=== PATIENT | male | born 1970 | race African-American/Black ===

== ENCOUNTER 2022-01-03 21:51 | Inpatient (IN) | payer MEDICAID ==
[~2022-01-03] VITALS: Ht 175.3 cm; Wt 116.5 kg
[2022-01-03] MEDS ORDERED: MORPHINE SULFATE 4 MG/ML CPJ (NOT FOR IM USE) IV STA (22:47)
[2022-01-03] MEDS ORDERED: ONDANSETRON HCL 4MG/2ML INJ IV STA (22:47)
[2022-01-03 23:20] LABS: BASOPHILS % 0.7 % (0.0-2.0); EOSINOPHILS % 0.7 % (0.0-5.0); HEMATOCRIT. 44.7 % (42.0-52.0); HEMOGLOBIN. 14.8 g/dL (14.0-18.0); LYMPHOCYTES % 22.3 % (20.0-50.0); MEAN CORPUSCULAR HEMOGLOBIN 29.9 pg (28.0-32.0); MEAN CORPUSCULAR VOLUME 90.3 fL (80.0-94.0); MEAN PLATELET VOLUME 8.7 fl (7.4-10.4); MONOCYTES % 10.4 % (2.0-8.0); NEUTROPHILS % 65.9 % (40.0-76.0); PLATELET 276 x1000/uL (130-400); RED BLOOD CELL COUNT 4.95 mill/uL (4.7-6.1); RED CELL DISTRIBUTION WIDTH 14.3 % (11.6-14.6)
[2022-01-03 23:21] LABS: INR 1.1; PROTHROMBIN TIME 12.1 sec (9.6-11.0)
[2022-01-03 23:22] LABS: CHLORIDE 101 mEq/L (98-107)
[2022-01-04] MEDS ORDERED: ONDANSETRON HCL 4MG/2ML INJ IV ONE (01:15)
[2022-01-04] MEDS ORDERED: MORPHINE SULFATE 4 MG/ML CPJ (NOT FOR IM USE) IV ONE (01:15)
[2022-01-04] MEDS ORDERED: MORPHINE SULFATE 2 MG/ML CPJ (NOT FOR IM USE) IV NR (10:00)
[2022-01-04] MEDS ORDERED: NALOXONE HCL 0.4MG/ML VIAL IV PRN (10:00)
[2022-01-04 10:50] VITALS: BP 173/95
[2022-01-04] MEDS ORDERED: ONDANSETRON HCL 4MG/2ML INJ IV PRN (11:30)
[2022-01-04] MEDS: ENOXAPARIN 40MG/0.4ML SYR SUBCUT SCH (11:50)
[2022-01-04 12:00] VITALS: BP 160/87
[2022-01-04 14:49] VITALS: BP 160/89
[2022-01-04 16:00] VITALS: BP 143/81
[2022-01-04] MEDS: MORPHINE SULFATE 2 MG/ML CPJ (NOT FOR IM USE) IV PRN ×2 (17:18→22:37)
[2022-01-04 20:00] VITALS: BP 164/73
[2022-01-05] MEDS: CLONIDINE 0.1MG TABLET PO PRN (03:26)
[2022-01-05] MEDS: MORPHINE SULFATE 2 MG/ML CPJ (NOT FOR IM USE) IV PRN ×4 (03:27→21:14)
[2022-01-05 04:00] VITALS: BP 170/93
[2022-01-05 06:40] LABS: BASOPHILS % 0.6 % (0.0-2.0); EOSINOPHILS % 1.5 % (0.0-5.0); HEMATOCRIT. 40.5 % (42.0-52.0); LYMPHOCYTES % 18.4 % (20.0-50.0); MEAN CORPUSCULAR HEMOGLOBIN 30.5 pg (28.0-32.0); MEAN CORPUSCULAR VOLUME 88.1 fL (80.0-94.0); MEAN PLATELET VOLUME 9.2 fl (7.4-10.4); MONOCYTES % 14.7 % (2.0-8.0); NEUTROPHILS % 64.8 % (40.0-76.0); PLATELET 242 x1000/uL (130-400); RED CELL DISTRIBUTION WIDTH 14.4 % (11.6-14.6)
[2022-01-05 07:14] LABS: CHLORIDE 98 mEq/L (98-107)
[2022-01-05] MEDS: ENOXAPARIN 40MG/0.4ML SYR SUBCUT SCH (09:05)
[2022-01-05] MEDS: AMLODIPINE 5MG TABLET PO SCH (16:36)
[2022-01-05 20:00] VITALS: BP 154/80
[2022-01-06] VITALS: BP 145/88
[2022-01-06] MEDS: MORPHINE SULFATE 2 MG/ML CPJ (NOT FOR IM USE) IV PRN ×4 (03:01→23:53)
[2022-01-06 04:00] VITALS: BP 157/94
[2022-01-06 08:00] VITALS: BP 154/100
[2022-01-06] MEDS: ENOXAPARIN 40MG/0.4ML SYR SUBCUT SCH (09:37)
[2022-01-06] MEDS: AMLODIPINE 5MG TABLET PO SCH (09:38)
[2022-01-06 12:00] VITALS: BP 134/84
[2022-01-06 16:00] VITALS: BP 132/78
[2022-01-06 20:00] VITALS: BP 163/85
[2022-01-06] MEDS: CLONIDINE 0.1MG TABLET PO PRN (21:47)
[2022-01-06] MEDS: ACETAMINOPHEN 325MG TABLET PO PRN (21:48)
[2022-01-07] VITALS: BP 147/77
[2022-01-07 04:00] VITALS: BP 165/92
[2022-01-07] MEDS: MORPHINE SULFATE 2 MG/ML CPJ (NOT FOR IM USE) IV PRN ×5 (04:42→22:38)
[2022-01-07] MEDS: CLONIDINE 0.1MG TABLET PO PRN (04:56)
[2022-01-07] MEDS: ACETAMINOPHEN 325MG TABLET PO PRN ×2 (06:55→21:21)
[2022-01-07 08:00] VITALS: BP 151/94
[2022-01-07] MEDS: DOCUSATE SODIUM 250MG CAPSULE PO SCH ×2 (09:00→16:09)
[2022-01-07] MEDS: AMLODIPINE 5MG TABLET PO SCH (09:24)
[2022-01-07] MEDS: ENOXAPARIN 40MG/0.4ML SYR SUBCUT SCH (09:24)
[2022-01-07 11:52] VITALS: BP 129/76
[2022-01-07 16:00] VITALS: BP 147/82
[2022-01-07 20:00] VITALS: BP 155/77
[2022-01-08] VITALS: BP 148/89
[2022-01-08] MEDS: MORPHINE SULFATE 2 MG/ML CPJ (NOT FOR IM USE) IV PRN ×3 (02:49→21:31)
[2022-01-08 04:00] VITALS: BP 142/68
[2022-01-08 08:00] VITALS: BP 144/84
[2022-01-08] MEDS: AMLODIPINE 5MG TABLET PO SCH (09:00)
[2022-01-08] MEDS: DOCUSATE SODIUM 250MG CAPSULE PO SCH (09:00)
[2022-01-08] MEDS ORDERED: ONDANSETRON HCL 4MG/2ML INJ ONE (11:02)
[2022-01-08] MEDS ORDERED: DEXAMETHASONE 4MG/ML 1ML VIAL ONE (11:02)
[2022-01-08] MEDS ORDERED: PROPOFOL 200MG/20ML VIAL IV ONE ×2 (11:03→12:22)
[2022-01-08] MEDS ORDERED: FENTANYL CITRATE/PF 50MCG/ML 2ML VIAL ONE (11:03)
[2022-01-08] MEDS ORDERED: MIDAZOLAM HCL 2 MG/2 ML VIAL ONE (11:03)
[2022-01-08] MEDS ORDERED: HYDROMORPHONE HCL/PF 2MG/ML CPJ ONE ×2 (11:34→13:43)
[2022-01-08] MEDS ORDERED: ONDANSETRON HCL 4MG/2ML INJ IV PRN (12:00)
[2022-01-08] MEDS ORDERED: DIPHENHYDRAMINE 50MG/ML VIAL IV PRN (12:00)
[2022-01-08] MEDS ORDERED: BUTORPHANOL TARTRATE 2 MG/ML VIAL IV PRN (12:00)
[2022-01-08] MEDS ORDERED: HYDROMORPHONE HCL/PF 2MG/ML CPJ IV PRN (12:00)
[2022-01-08] MEDS ORDERED: LABETALOL 5MG/ML SYR 20 MG/4 ML SYRINGE IV PRN ×2 (12:00→18:30)
[2022-01-08] MEDS ORDERED: MEPERIDINE HCL/PF 25MG/ML CPJ IV PRN (12:00)
[2022-01-08] MEDS ORDERED: CEFAZOLIN 2,000 MG in DEXT 5% WATER 100 ML IV SCH (14:00)
[2022-01-08] MEDS ORDERED: LABETALOL HCL VIAL 20 MG/4 ML VIAL IV PRN (14:15)
[2022-01-08] MEDS ORDERED: LABETALOL HCL 5MG/ML VIAL 20ML IV PRN (14:28)
[2022-01-08] MEDS: HYDROMORPHONE HCL/PF 2MG/ML CPJ IV PRN ×2 (15:54→16:17)
[2022-01-08] MEDS: CLONIDINE 0.1MG TABLET PO PRN (18:22)
[2022-01-08] MEDS ORDERED: HYDRALAZINE 20MG/ML VIAL IV PRN (18:30)
[2022-01-08 19:00] VITALS: BP 165/97
[2022-01-08 20:00] VITALS: BP 129/96
[2022-01-08] MEDS: CEFAZOLIN 2,000 MG in DEXT 5% WATER 100 ML IV SCH (22:47)
[2022-01-09] VITALS: BP 156/86
[2022-01-09] MEDS: MORPHINE SULFATE 2 MG/ML CPJ (NOT FOR IM USE) IV PRN ×5 (01:32→22:11)
[2022-01-09] MEDS: ACETAMINOPHEN 325MG TABLET PO PRN ×2 (02:16→16:34)
[2022-01-09 04:00] VITALS: BP 142/73
[2022-01-09] MEDS: CEFAZOLIN 2,000 MG in DEXT 5% WATER 100 ML IV SCH ×3 (05:49→21:22)
[2022-01-09 07:47] LABS: BASOPHILS % 0.2 % (0.0-2.0); HEMATOCRIT. 36.7 % (42.0-52.0); HEMOGLOBIN. 12.5 g/dL (14.0-18.0); LYMPHOCYTES % 7.5 % (20.0-50.0); MEAN CORPUSCULAR HEMOGLOBIN 29.9 pg (28.0-32.0); MEAN PLATELET VOLUME 8.9 fl (7.4-10.4); MONOCYTES % 11.3 % (2.0-8.0); PLATELET 311 x1000/uL (130-400); RED BLOOD CELL COUNT 4.17 mill/uL (4.7-6.1); RED CELL DISTRIBUTION WIDTH 14.2 % (11.6-14.6)
[2022-01-09 07:55] LABS: CHLORIDE 98 mEq/L (98-107)
[2022-01-09 08:00] VITALS: BP 146/64
[2022-01-09] MEDS: AMLODIPINE 5MG TABLET PO SCH (09:47)
[2022-01-09] MEDS: DOCUSATE SODIUM 250MG CAPSULE PO SCH ×2 (09:48→16:12)
[2022-01-09] MEDS ORDERED: NALOXONE HCL 0.4MG/ML VIAL IV PRN (11:45)
[2022-01-09 16:00] VITALS: BP 130/68
[2022-01-09] MEDS: ENOXAPARIN 40MG/0.4ML SYR SUBCUT SCH (17:08)
[2022-01-09 20:00] VITALS: BP 135/79
[2022-01-10] VITALS: BP 161/84
[2022-01-10] MEDS: CLONIDINE 0.1MG TABLET PO PRN ×2 (00:48→22:06)
[2022-01-10] MEDS: CEFAZOLIN 2,000 MG in DEXT 5% WATER 100 ML IV SCH ×3 (05:49→22:05)
[2022-01-10 05:59] LABS: BASOPHILS % 0.7 % (0.0-2.0); EOSINOPHILS % 0.2 % (0.0-5.0); HEMATOCRIT. 37.6 % (42.0-52.0); HEMOGLOBIN. 12.8 g/dL (14.0-18.0); LYMPHOCYTES % 16.2 % (20.0-50.0); MEAN CORPUSCULAR HEMOGLOBIN 29.8 pg (28.0-32.0); MEAN CORPUSCULAR VOLUME 87.5 fL (80.0-94.0); MEAN PLATELET VOLUME 8.9 fl (7.4-10.4); MONOCYTES % 14.4 % (2.0-8.0); NEUTROPHILS % 68.5 % (40.0-76.0); PLATELET 331 x1000/uL (130-400); RED CELL DISTRIBUTION WIDTH 14.1 % (11.6-14.6)
[2022-01-10 06:17] LABS: CHLORIDE 96 mEq/L (98-107)
[2022-01-10 08:00] VITALS: BP 140/82
[2022-01-10] MEDS: DOCUSATE SODIUM 250MG CAPSULE PO SCH ×2 (09:52→16:37)
[2022-01-10] MEDS: AMLODIPINE 5MG TABLET PO SCH (09:52)
[2022-01-10 12:00] VITALS: BP 158/81
[2022-01-10] MEDS: MORPHINE SULFATE 2 MG/ML CPJ (NOT FOR IM USE) IV PRN ×2 (13:31→22:05)
[2022-01-10 16:00] VITALS: BP 141/79
[2022-01-10] MEDS: ENOXAPARIN 40MG/0.4ML SYR SUBCUT SCH (16:37)
[2022-01-10 20:00] VITALS: BP 168/93
[2022-01-11] VITALS: BP 130/75
[2022-01-11 04:00] VITALS: BP 173/88
[2022-01-11] MEDS: MORPHINE SULFATE 2 MG/ML CPJ (NOT FOR IM USE) IV PRN ×3 (04:54→19:41)
[2022-01-11] MEDS: CLONIDINE 0.1MG TABLET PO PRN (04:55)
[2022-01-11] MEDS: CEFAZOLIN 2,000 MG in DEXT 5% WATER 100 ML IV SCH (06:20)
[2022-01-11] MEDS: AMLODIPINE 5MG TABLET PO SCH (09:54)
[2022-01-11] MEDS: DOCUSATE SODIUM 250MG CAPSULE PO SCH ×2 (09:54→19:00)
[2022-01-11 12:00] VITALS: BP 178/74
[2022-01-11 16:00] VITALS: BP_SYST 129; BP_SYST 181; BP_DIAS 65; BP_DIAS 73
[2022-01-11] MEDS: ENOXAPARIN 30MG/0.3ML SYR SUBCUT SCH (18:59)
[2022-01-11 20:00] VITALS: BP 143/73
[2022-01-11] MEDS: ACETAMINOPHEN 325MG TABLET PO PRN (21:09)
[2022-01-12] VITALS: BP 150/88
[2022-01-12] MEDS: MORPHINE SULFATE 2 MG/ML CPJ (NOT FOR IM USE) IV PRN ×3 (00:25→15:11)
[2022-01-12] MEDS: ACETAMINOPHEN 325MG TABLET PO PRN ×2 (02:15→17:46)
[2022-01-12 02:25] VITALS: BP 150/88
[2022-01-12 04:00] VITALS: BP 147/88
[2022-01-12] MEDS: ENOXAPARIN 30MG/0.3ML SYR SUBCUT SCH (06:00)
[2022-01-12] MEDS: DOCUSATE SODIUM 250MG CAPSULE PO SCH ×2 (09:00→17:00)
[2022-01-12] MEDS: AMLODIPINE 5MG TABLET PO SCH (09:43)
[2022-01-12] MEDS ORDERED: HYDR-4001 PO ×2 (16:22→16:24)
[2022-01-12] MEDS ORDERED: IBUP-2030 PO (16:26)
[2022-01-12 16:27] VITALS: BP 147/83
[2022-01-12 18:48] VITALS: BP_SYST 118; BP_SYST 119; BP_SYST 152; BP_DIAS 55; BP_DIAS 57; BP_DIAS 83
[2022-01-13] MEDS ORDERED: AMOX1TAB16 MT (12:32)
== END 2022-01-12 19:03 | disposition home health service (06) | DRG 313 ==
LOC: ER 21:51 → 6EST 01-04 02:30 → ENRESERV 01-04 07:21 → 7WST 01-08 17:22
PROVIDERS: ADMIT Internal Medicine; ATTEND Internal Medicine
PROC: 0QSH04Z Reposition Left Tibia with Internal Fixation Device, Open Approach (ICD-10-PCS; principal; 2022-01-08)
PROC: 0QSH04Z Reposition Left Tibia with Internal Fixation Device, Open Approach (ICD-10-PCS; 2022-01-08)
DX: S82.252A Displaced comminuted fracture of shaft of left tibia, initial encounter for closed fracture (principal); I10 Essential (primary) hypertension; S82.152A Displaced fracture of left tibial tuberosity, initial encounter for closed fracture; Z20.822 Contact with and (suspected) exposure to COVID-19; V89.2XXA Person injured in unspecified motor-vehicle accident, traffic, initial encounter; Y93.89 Activity, other specified; Y92.89 Other specified places as the place of occurrence of the external cause; Y99.8 Other external cause status
CPT/HCPCS: 36415; 71045; 73130; 73562; 73590; 73700; 76000; 80048; 80053; 85025; 86850; 86900; 87426; 93005; 97116; 97162; 97166; 97530; 97535; 99291; C1713; J0360; J0690; J1100; J1170; J1650; J2250; J2270; J2405; J2704; J3010; J3490; J7060